=== PATIENT | female | born 2000 | race Caucasian/White ===

== ENCOUNTER 2018-01-01 18:46 | Emergency (ER) | payer SELFPAY ==
[~2018-01-01] VITALS: Ht 160 cm; Wt 72.6 kg
[2018-01-01 19:25] LABS: BILIRUBIN,URINE NEGATIVE (NEGATIVE); CLARITY,URINE CLEAR; COLOR,URINE YELLOW; GLUCOSE, URINE (UA) NEGATIVE (NEGATIVE); KETONES,URINE NEGATIVE (NEGATIVE); LEUKOCYTE ESTERASE ,URINE NEGATIVE (NEGATIVE); NITRITE,URINE NEGATIVE (NEGATIVE); PH,URINE 6.5 (5-9); PROTEIN,URINE NEGATIVE (NEGATIVE); UROBILINOGEN,URINE NORMAL (NORMAL)
[2018-01-01 19:26] LABS: SQUAMOUS EPITHELIAL CELL,UR 0-2 /HPF
[2018-01-01] MEDS ORDERED: CYCL10TA9 PO (19:53)
--- NOTE | 2018-01-01 19:53 | ED Back Pain ---
General Chief Complaint: Back Problems Stated Complaint: LOWER BACK PAIN Nursing Triage Note: PT TO ED 10 W/ C/O LOWER BACK PAIN UPON WAKING THIS AM. 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 NO OTHER C/O VOICED Source of Information: Patient Exam Limitations: No Limitations History of Present Illness Date Seen by Provider: Jan 01, 2018 Time Seen by Provider: 19:39 Initial Comments This 17-year-old young lady presents to the emergency room with complaints of discomfort in the back, especially the left lower back. It feels like a pressure. It hurts worse with movement. 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 Her pain suddenly intensified this evening. She has not taken any pain medication. She states that worsened while she was walking at work and had consumed a significant amount of caffeine. She wonders if the caffeine use cause the pain. She denies as she had Nexplanon placed in August. She denies any urinary symptoms. No radicular symptoms. Allergies and Home Medications Allergies Coded Allergies: prednisone (Verified Adverse Reaction, Unknown, 01/01/18) Agitation and severe depression Home Medications Cyclobenzaprine HCl 10 Mg Tablet, 10 MG PO TID PRN for SPASMS Prescribed by: KRISTIN GUERRA on 01/01/181952 Patient Home Medication List Home Medication List Reviewed: Yes Constitutional: no symptoms reported EENTM: no symptoms reported Respiratory: no symptoms reported Cardiovascular: no symptoms reported Gastrointestinal: no symptoms reported Genitourinary: no symptoms reported : No Control/STD Prophylaxis: Other (Nexplanon) Musculoskeletal: see HPI Skin: no symptoms reported Psychiatric/Neurological: No Symptoms Reported Past Jrdhwov-Akfgej-Hpxzfc Hx Patient Social History Alcohol Use: Denies Use Recreational Drug Use: No Smoking Status: Never a Smoker Recent Foreign Travel: No Contact w/Someone Who Travel: No Recent Infectious Disease Expo: No Recent Hopitalizations: No Ebola Symptoms: Denies Symptoms Listed Physical Abuse: No Sexual Abuse: No Mistreated: No Fear: No Past Medical History Surgeries: No Respiratory: No Cardiac: No Neurological: No : No Reproductive Disorders: No Genitourinary: No Gastrointestinal: No Musculoskeletal: Yes Chronic Back Pain Endocrine: No HEENT: No Cancer: No Psychosocial: No Nursing Suicide Risk Score: 0 Integumentary: No Blood Disorders: No Physical Exam Vital Signs Vital Signs - First Documented 01/01/18 01/01/18 18:55 20:00 Temp 96.6 Pulse 72 Resp 18 B/P (MAP) 135/94 Pulse Ox 100 O2 Delivery Room Air Capillary Refill : General Appearance: No Apparent Distress, WD/WN HEENT: Normal ENT Inspection Neck: Normal Inspection Cardiovascular: Regular Rate, Rhythm, No Edema, No Murmur Respiratory: Lungs Clear, Normal Breath Sounds, No Accessory Muscle Use, No Respiratory Distress Gastrointestinal: Normal Bowel Sounds, Non Tender, Soft Back: Normal Inspection, Other (subtle tenderness in the lower lumbar region and left paraspinous muscles) Extremity: Normal Inspection, No Pedal Edema Neurologic/Psychiatric: Alert, Oriented x3, No Motor/Sensory Deficits, Normal 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, 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 Norm as Tested Skin: Normal Color, Warm/Dry Progress/Results/Core Measures Lab Results Laboratory Tests Test 01/01/18 19:03 Range/Units Urine Color YELLOW Urine Clarity CLEAR Urine pH 6.5 5-9 Urine Specific [place] 1.010 L 1.016-1.022 Urine Protein NEGATIVE NEGATIVE Urine Glucose (UA) NEGATIVE NEGATIVE Urine Ketones NEGATIVE NEGATIVE Urine Nitrite NEGATIVE NEGATIVE Urine Bilirubin NEGATIVE NEGATIVE Urine Urobilinogen NORMAL NORMAL MG/DL Urine Leukocyte Esterase NEGATIVE NEGATIVE Urine RBC (Auto) NEGATIVE NEGATIVE Urine RBC NONE /HPF Urine WBC NONE /HPF Urine Squamous Epithelial Cells 0-2 /HPF Urine Crystals NONE /LPF Urine Bacteria NONE /HPF Urine Casts NONE /LPF Urine Mucus NEGATIVE /LPF Urine Culture Indicated NO Vital Signs/I&O Vital Sign - Last 12Hours 01/01/18 01/01/18 18:55 20:00 Temp 96.6 96.8 Pulse 72 70 Resp 18 16 B/P (MAP) 135/94 Pulse Ox 100 O2 Delivery Room Air Room Air Urine -Bedside: Negative Progress Note : Progress Note Patient offered Toradol and Norflex injections but declines. She prefers oral medications. Departure Impression Primary Impression: Lower back pain Qualified Codes: M54.5 - Low back pain Disposition: 01 HOME, SELF-CARE Condition: Stable Departure-Patient Inst. Decision time for Depature: 19:50 Referrals: NO,LOCAL PHYSICIAN (PCP) Primary Care Physician Patient Instructions: Low Back Pain (DC) Add. Discharge Instructions: Use ibuprofen up to 600 mg every 6 hours as needed for primary pain control. Add Tylenol (acetaminophen) up to 1000 mg every 6 hours as needed for additional pain relief. Gentle heat may be helpful to relax your muscles. You may use auij-uyh-gebgtly topical treatments such as icy hot or Biofreeze. Avoid heavy lifting until pain resolves. You may use cyclobenzaprine as a muscle relaxer if necessary. This medication may cause drowsiness so use with caution. Follow-up with your primary care provider if pain is persistent. You may need imaging such as MRI for further evaluation. Return to care if symptoms are worsening, especially if you develop weakness in your legs or difficulty controlling bowels or bladder. All discharge instructions reviewed with patient and/or family. Voiced understanding. Scripts Cyclobenzaprine HCl (Cyclobenzaprine HCl) 10 Mg Tablet 10 MG PO TID Y for SPASMS, #10 TAB Prov: KRISTIN HURST MD 01/01/18 Work/School Note: Work Release Form Date Seen in the Emergency Department: Jan 01, 2018 Return to Work: Jan 02, 2018 Other Restrictions Listed Below: No lifting over 20 lbs until pain resolves KRISTIN HURST MD Jan 01, 2018 19:53
== END 2018-01-01 20:00 | disposition home or self-care (01) ==
LOC: ER 18:49
DX: M54.5 Low back pain (principal); Z88.8 Allergy status to other drugs, medicaments and biological substances
CPT/HCPCS: 81000; 84703; 99282

== ENCOUNTER 2018-06-10 17:47 | Emergency (ER) | payer SELFPAY ==
[~2018-06-10] VITALS: Ht 162.6 cm; Wt 77.1 kg
[~2018-06-10 17:47] MED LIST: CYCL10TA9 PO
[2018-06-10] MEDS ORDERED: IBUPROFEN TABLET 200 MG TAB PO STA (19:49)
[2018-06-10] MEDS ORDERED: CYCLOBENZAPRINE 10 MG (FLEXERIL) TAB PO STA (19:49)
[2018-06-10] MEDS ORDERED: CYCL10TA9 PO (19:58)
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
== END 2018-06-10 20:30 | disposition home or self-care (01) ==
LOC: EDUNIT# 17:47 → ER 17:48
DX: S46.812A Strain of other muscles, fascia and tendons at shoulder and upper arm level, left arm, initial encounter (principal); M54.12 Radiculopathy, cervical region; Z88.8 Allergy status to other drugs, medicaments and biological substances; V49.50XA Passenger injured in collision with unspecified motor vehicles in traffic accident, initial encounter
CPT/HCPCS: 99283